=== PATIENT | female | born 1985 ===

== ENCOUNTER 2023-07-17 05:57 | Day surgery (SDC) | payer OTHER ==
[2023-07-17] MEDS ORDERED: PERCOCET 5-3251 EACH PO (08:29)
[2023-07-17] MEDS ORDERED: MIRALAX17 GM PO (08:29)
[2023-07-17] MEDS ORDERED: SURFAK240 M1 PO (08:29)
[2023-07-17] MEDS ORDERED: BACTRIM DS TAB1 EACH PO (08:30)
== END 2023-07-17 14:10 | disposition home or self-care (01) ==
LOC: CIR.AMB 05:57
PROVIDERS: ATTEND Surgery
DX: K42.0 Umbilical hernia with obstruction, without gangrene (principal); K43.6 Other and unspecified ventral hernia with obstruction, without gangrene; Z20.822 Contact with and (suspected) exposure to COVID-19